=== PATIENT | male | born 1960 | race Caucasian/White ===

== ENCOUNTER 2017-08-26 08:52 | Emergency (ER) | payer OTHER ==
[~2017-08-26] VITALS: Ht 185.4 cm; Wt 63.5 kg
[~2017-08-26 08:52] MED LIST: AMOCLA875 PO; Amoxicillin500 MG PO; Augmentin 875-1 EACH PO; CEPH500 PO; CLIN300 PO; HYDACE5 PO; IBUP600 PO; IBUP800 PO; MARIJUANA INH; Naprosyn500 MG PO; Percocet 5-3251 EACH PO; RXOXYACE PO; TRAACE PO; Vibramycin100 MG PO
[2017-08-26] MEDS ORDERED: CEPH500 PO (09:23)
== END 2017-08-26 09:30 | disposition home or self-care (01) ==
LOC: ER 08:52
DX: L03.211 Cellulitis of face (principal); F17.200 Nicotine dependence, unspecified, uncomplicated; Z88.2 Allergy status to sulfonamides
CPT/HCPCS: 99282

== ENCOUNTER 2017-11-24 13:12 | Emergency (ER) | payer OTHER ==
[~2017-11-24] VITALS: Ht 185.4 cm; Wt 63.5 kg
[2017-11-24] MEDS ORDERED: Amoxicillin500 MG PO (14:36)
[2017-11-24] MEDS ORDERED: Ocuflox5 ML RIGHTEAR (14:36)
== END 2017-11-24 14:47 | disposition home or self-care (01) ==
LOC: ER 13:12
DX: H66.91 Otitis media, unspecified, right ear (principal); H72.91 Unspecified perforation of tympanic membrane, right ear; F17.200 Nicotine dependence, unspecified, uncomplicated; Z88.2 Allergy status to sulfonamides
CPT/HCPCS: 99283

== ENCOUNTER 2017-12-28 15:49 | Emergency (ER) | payer OTHER ==
[~2017-12-28] VITALS: Ht 185.4 cm; Wt 63.5 kg
[~2017-12-28 15:49] MED LIST changes: +Ocuflox5 ML RIGHTEAR
[2017-12-28] MEDS ORDERED: ERYT1OIN LEFTEYE (17:13)
== END 2017-12-28 17:32 | disposition home or self-care (01) ==
LOC: ER 15:49
DX: T65.891A Toxic effect of other specified substances, accidental (unintentional), initial encounter (principal); H10.212 Acute toxic conjunctivitis, left eye; Z88.2 Allergy status to sulfonamides; F17.200 Nicotine dependence, unspecified, uncomplicated
CPT/HCPCS: 99283; J7030

== ENCOUNTER 2018-10-14 11:23 | Emergency (ER) | payer OTHER ==
[~2018-10-14] VITALS: Ht 185.4 cm; Wt 63.5 kg
[~2018-10-14 11:23] MED LIST changes: +ERYT1OIN LEFTEYE
[2018-10-14] MEDS ORDERED: CEPH500 PO (11:58)
== END 2018-10-14 12:20 | disposition home or self-care (01) ==
LOC: ER 11:23
DX: H66.42 Suppurative otitis media, unspecified, left ear (principal); Z88.2 Allergy status to sulfonamides; F17.200 Nicotine dependence, unspecified, uncomplicated
CPT/HCPCS: 10060; 90471; 90714; 99282-25

== ENCOUNTER 2019-02-23 09:30 | Emergency (ER) | payer OTHER ==
[~2019-02-23] VITALS: Ht 185.4 cm; Wt 63.5 kg
[2019-02-23] MEDS ORDERED: Floxin10 ML RIGHTEAR (10:17)
== END 2019-02-23 10:20 | disposition home or self-care (01) ==
LOC: ER 09:30
DX: H60.91 Unspecified otitis externa, right ear (principal); Z88.2 Allergy status to sulfonamides; F17.200 Nicotine dependence, unspecified, uncomplicated
CPT/HCPCS: 99282

== ENCOUNTER 2020-01-15 10:51 | Emergency (ER) | payer OTHER ==
[~2020-01-15] VITALS: Ht 185.4 cm; Wt 63.5 kg
[~2020-01-15 10:51] MED LIST changes: +Floxin10 ML RIGHTEAR
== END 2020-01-15 12:42 | disposition short-term general hospital (02) ==
LOC: ER 10:51
DX: S98.121A Partial traumatic amputation of right great toe, initial encounter (principal); S98.221A Partial traumatic amputation of two or more right lesser toes, initial encounter; S97.81XA Crushing injury of right foot, initial encounter; Z23 Encounter for immunization; F17.200 Nicotine dependence, unspecified, uncomplicated; Z88.2 Allergy status to sulfonamides; W26.8XXA Contact with other sharp object(s), not elsewhere classified, initial encounter
CPT/HCPCS: 29515; 73630; 90471; 90714; 96361-59; 96374-59; 96375-59; 99285-25; J0690; J1170; J2405; J7030; U0002

== ENCOUNTER 2023-03-28 09:24 | Emergency (ER) | payer OTHER ==
[~2023-03-28] VITALS: Ht 185.4 cm; Wt 63.5 kg
[2023-03-28 09:34] VITALS: BP 141/97
== END 2023-03-28 10:04 | disposition home or self-care (01) ==
LOC: ER 09:24
DX: U07.1 COVID-19 (principal); Z88.2 Allergy status to sulfonamides; F17.200 Nicotine dependence, unspecified, uncomplicated
CPT/HCPCS: 99283; A9270